=== PATIENT | male | born 1975 | race Two or more races ===

== ENCOUNTER → 2016-12-22 | Outpatient (CLI) | payer OTHER | END | disposition home or self-care (01) | LOC: RD 15:23 | DX: M54.9 Dorsalgia, unspecified (principal) | CPT/HCPCS: 72072 ==

== ENCOUNTER → 2017-01-09 | Outpatient (CLI) | payer OTHER ==
[2017-01-09 09:22] LABS: BASOPHIL % 0.6 % (0-2); PLATELET COUNT 278 x10^3mcL (130-400)
[2017-01-09 09:24] LABS: RED CELL DISTRIBUTION WIDTH 14.8 % (11.5-14.5)
[2017-01-09 09:37] LABS: ALBUMIN 3.7 g/dL (3.4-5.0); ALKALINE PHOSPHATASE 50 U/L (46-116); ALT/SGPT 38 U/L (16-63); AST/SGOT 22 U/L (15-37); CALCIUM 9.1 mg/dL (8.5-10.1); CARBON DIOXIDE 27.7 mmol/L (21-32); CHLORIDE SERUM 105 mmol/L (98-107); CHOLESTEROL 166 mg/dL (<200); CHOLESTEROL/HDL RATIO 4.5; CREATININE SERUM 1.2 mg/dL (0.7-1.3); GFR1 > 60 mL/min; GLUCOSE SERUM 96 mg/dL (74-106); HDL CHOLESTEROL 37 mg/dL (40-60); POTASSIUM SERUM 3.8 mmol/L (3.5-5.1); SODIUM SERUM 140 mmol/L (136-145); TOTAL PROTEIN, SERUM 8.1 g/dL (6.4-8.2); TRIGLYCERIDES 96 mg/dL (<150); URIC ACID 8.3 mg/dL (3.5-7.2)
== END | disposition home or self-care (01) ==
LOC: LB 08:58
PROVIDERS: Family Medicine
DX: Z00.00 Encounter for general adult medical examination without abnormal findings (principal); M10.00 Idiopathic gout, unspecified site

== ENCOUNTER → 2018-01-07 | Outpatient (CLI) | payer OTHER ==
[2018-01-07 08:02] LABS: ALBUMIN 3.7 g/dL (3.4-5.0); ALKALINE PHOSPHATASE 56 U/L (46-116); ALT/SGPT 57 U/L (16-63); AST/SGOT 30 U/L (15-37); BILIRUBIN TOTAL 0.84 mg/dL (0.20-1.00); CALCIUM 8.9 mg/dL (8.5-10.1); CARBON DIOXIDE 28.2 mmol/L (21-32); CHLORIDE SERUM 106 mmol/L (98-107); CHOLESTEROL 145 mg/dL (<200); GFR1 > 60 mL/min; GLUCOSE SERUM 96 mg/dL (74-106); POTASSIUM SERUM 4.1 mmol/L (3.5-5.1); SODIUM SERUM 143 mmol/L (136-145); TRIGLYCERIDES 63 mg/dL (<150); URIC ACID 7.7 mg/dL (3.5-7.2)
[2018-01-07 08:03] LABS: CHOLESTEROL/HDL RATIO 4.4; HDL CHOLESTEROL 33 mg/dL (40-60)
== END | disposition home or self-care (01) ==
LOC: LB 07:26
PROVIDERS: Family Medicine
DX: G47.62 Sleep related leg cramps (principal); Z87.39 Personal history of other diseases of the musculoskeletal system and connective tissue; Z13.220 Encounter for screening for lipoid disorders

== ENCOUNTER 2018-04-22 08:43 | Emergency (ER) | payer OTHER ==
[~2018-04-22] VITALS: Ht 177.8 cm; Wt 83.9 kg
[2018-04-22 08:44] VITALS: Ht 177.8 cm; Wt 83.9 kg
[2018-04-22 09:25] VITALS: BP 130/88
== END 2018-04-22 09:56 | disposition home or self-care (01) ==
LOC: ED 08:43
DX: R55 Syncope and collapse (principal)

== ENCOUNTER → 2018-04-22 | Outpatient (CLI) | payer OTHER ==
[2018-04-22 09:47] LABS: BASOPHIL % 1.1 % (0-2); PLATELET COUNT 133 x10^3mcL (130-400)
[2018-04-22 09:48] LABS: RED CELL DISTRIBUTION WIDTH 15.2 % (11.5-14.5)
[2018-04-22 10:02] LABS: IRON 44 ug/dL (65-170); TOTAL IRON BINDING CAPACITY 320 ug/dL (250-450)
[2018-04-22 10:18] LABS: ALBUMIN 3.7 g/dL (3.4-5.0); ALKALINE PHOSPHATASE 52 U/L (46-116); ALT/SGPT 37 U/L (16-63); AST/SGOT 25 U/L (15-37); BILIRUBIN TOTAL 0.7 mg/dL (0.20-1.00); CARBON DIOXIDE 27.3 mmol/L (21-32); CHLORIDE SERUM 103 mmol/L (98-107); CREATININE SERUM 1.1 mg/dL (0.7-1.3); GFR1 > 60 mL/min; GLUCOSE SERUM 96 mg/dL (74-106); MAGNESIUM 2.2 mg/dL (1.8-2.4); POTASSIUM SERUM 4.1 mmol/L (3.5-5.1); SODIUM SERUM 138 mmol/L (136-145)
[2018-04-22 10:26] LABS: TOTAL PROTEIN, SERUM 8.5 g/dL (6.4-8.2)
[2018-04-23 09:20] LABS: RHEUMATOID ARTHRITIS FACTOR <10.0 IU/mL (0.0-13.9)
[2018-04-24 10:54] LABS: VITAMIN D 25-HYDROXY 34.5 ng/mL (30.0-100.0)
== END | disposition home or self-care (01) ==
LOC: LB 07:24
DX: J30.2 Other seasonal allergic rhinitis (principal); R73.03 Prediabetes; R53.83 Other fatigue; R68.89 Other general symptoms and signs
CPT/HCPCS: 84153; 84439; 86376; 86431

== ENCOUNTER → 2018-05-11 | Outpatient (CLI) | payer OTHER ==
[2018-05-11 11:55] LABS: FREE T4 1.04 ng/dL (0.76-1.46)
== END | disposition home or self-care (01) ==
LOC: LB 10:17
DX: J30.2 Other seasonal allergic rhinitis (principal); R73.03 Prediabetes; R53.83 Other fatigue; R68.89 Other general symptoms and signs
CPT/HCPCS: 84439

== ENCOUNTER → 2018-12-04 | Outpatient (CLI) | payer OTHER | END | disposition home or self-care (01) | LOC: US 15:57 | PROC: BG44ZZZ Ultrasonography of Thyroid Gland (ICD-10-PCS; principal; 2018-12-04) | DX: E04.9 Nontoxic goiter, unspecified (principal) ==

== ENCOUNTER → 2019-02-10 | Outpatient (CLI) | payer OTHER ==
[2019-02-10 08:25] LABS: ALBUMIN 3.8 g/dL (3.4-5.0); ALKALINE PHOSPHATASE 47 U/L (46-116); ALT/SGPT 34 U/L (16-63); AST/SGOT 11 U/L (15-37); BILIRUBIN TOTAL 0.69 mg/dL (0.20-1.00); CALCIUM 9.5 mg/dL (8.5-10.1); CARBON DIOXIDE 27.4 mmol/L (21-32); CHLORIDE SERUM 106 mmol/L (98-107); CHOLESTEROL 188 mg/dL (<200); CHOLESTEROL/HDL RATIO 4.6; CREATININE SERUM 1.1 mg/dL (0.7-1.3); GFR1 > 60 mL/min; GLUCOSE SERUM 98 mg/dL (74-106); HDL CHOLESTEROL 41 mg/dL (40-60); MAGNESIUM 2.3 mg/dL (1.8-2.4); POTASSIUM SERUM 4.1 mmol/L (3.5-5.1); SODIUM SERUM 143 mmol/L (136-145); TOTAL PROTEIN, SERUM 8.1 g/dL (6.4-8.2); TRIGLYCERIDES 108 mg/dL (<150)
[2019-02-12 08:57] LABS: microscopic required? NO
[2019-02-12 09:16] LABS: urine erythrocyte NEGATIVE (NEGATIVE)
== END | disposition home or self-care (01) ==
LOC: LB 07:09
DX: Z00.00 Encounter for general adult medical examination without abnormal findings (principal); K21.9 Gastro-esophageal reflux disease without esophagitis; E83.42 Hypomagnesemia; E79.0 Hyperuricemia without signs of inflammatory arthritis and tophaceous disease; E53.8 Deficiency of other specified B group vitamins; E55.9 Vitamin D deficiency, unspecified; G25.81 Restless legs syndrome
CPT/HCPCS: 87338

== ENCOUNTER → 2019-03-02 | Outpatient (CLI) | payer OTHER ==
[2019-03-02 11:47] LABS: BASOPHIL % 0.7 % (0-2); PLATELET COUNT 280 x10^3mcL (130-400); RED CELL DISTRIBUTION WIDTH 14.5 % (11.5-14.5)
== END | disposition home or self-care (01) ==
LOC: LB 11:13
DX: E61.1 Iron deficiency (principal)

== ENCOUNTER → 2019-09-10 | Outpatient (CLI) | payer OTHER ==
[2019-09-10 17:10] LABS: IRON 35 ug/dL (65-170); TOTAL IRON BINDING CAPACITY 291 ug/dL (250-450)
[2019-09-10 17:11] LABS: BASOPHIL % 0.8 % (0-2); PLATELET COUNT 285 x10^3mcL (130-400); RED CELL DISTRIBUTION WIDTH 15.1 % (11.5-14.5)
== END | disposition home or self-care (01) ==
LOC: LB 16:28
DX: D64.9 Anemia, unspecified (principal)

== ENCOUNTER → 2019-09-17 | Outpatient (CLI) | payer OTHER ==
[2019-09-17 08:13] LABS: BASOPHIL % 1.1 % (0-2); PLATELET COUNT 289 x10^3mcL (130-400)
[2019-09-17 08:20] LABS: RED CELL DISTRIBUTION WIDTH 14.9 % (11.5-14.5)
[2019-09-17 08:26] LABS: ALBUMIN 3.7 g/dL (3.4-5.0); ALKALINE PHOSPHATASE 44 U/L (46-116); ALT/SGPT 47 U/L (16-63); AST/SGOT 17 U/L (15-37); BILIRUBIN TOTAL 0.5 mg/dL (0.20-1.00); C REACTIVE PROTEIN 0.8 mg/dL (<=0.9); CALCIUM 8.5 mg/dL (8.5-10.1); CARBON DIOXIDE 28.3 mmol/L (21-32); CHLORIDE SERUM 105 mmol/L (98-107); CREATININE SERUM 1.1 mg/dL (0.7-1.3); GFR1 > 60 mL/min; GLUCOSE SERUM 96 mg/dL (74-106); POTASSIUM SERUM 3.9 mmol/L (3.5-5.1); SODIUM SERUM 140 mmol/L (136-145); T4(THYROXINE) 7.9 ug/dL (4.7-13.3)
[2019-09-18 04:06] LABS: INSULIN 33.1 uIU/mL (2.6-24.9)
[2019-09-18 12:20] LABS: IRON 53 ug/dL (65-170); TOTAL IRON BINDING CAPACITY 299 ug/dL (250-450)
== END | disposition home or self-care (01) ==
LOC: LB 07:30
DX: J30.9 Allergic rhinitis, unspecified (principal); R89.9 Unspecified abnormal finding in specimens from other organs, systems and tissues; E04.9 Nontoxic goiter, unspecified; R79.0 Abnormal level of blood mineral
CPT/HCPCS: 84153; 84402; 84403; 86376

== ENCOUNTER 2019-09-28 07:03 | Day surgery (SDC) | payer OTHER ==
[~2019-09-28] VITALS: Ht 177.8 cm; Wt 88.5 kg
[2019-09-28 07:19] VITALS: BP 124/69
[2019-09-28 17:13] VITALS: BP 142/90
== END 2019-09-28 10:40 | disposition home or self-care (01) ==
LOC: GI 07:03 → OR 08:30 → GI 10:40
DX: D50.9 Iron deficiency anemia, unspecified (principal); K63.89 Other specified diseases of intestine; K21.9 Gastro-esophageal reflux disease without esophagitis; K64.8 Other hemorrhoids; G47.33 Obstructive sleep apnea (adult) (pediatric); J45.998 Other asthma; Z79.899 Other long term (current) drug therapy; Z98.890 Other specified postprocedural states
CPT/HCPCS: 43235; 45378; 87081; J1200; J1610; J2250; J2310; J3010; J3490

== ENCOUNTER → 2020-04-04 | Outpatient (CLI) | payer OTHER ==
[2020-04-04 08:26] LABS: BASOPHIL % 0.7 % (0-2); PLATELET COUNT 261 x10^3mcL (130-400)
[2020-04-04 08:39] LABS: RED CELL DISTRIBUTION WIDTH 15.3 % (11.5-14.5)
[2020-04-04 08:42] LABS: ALBUMIN 3.8 g/dL (3.4-5.0); ALKALINE PHOSPHATASE 53 U/L (46-116); ALT/SGPT 54 U/L (16-63); AST/SGOT 25 U/L (15-37); BILIRUBIN TOTAL 0.51 mg/dL (0.20-1.00); C REACTIVE PROTEIN 1.2 mg/dL (<=0.9); CALCIUM 8.7 mg/dL (8.5-10.1); CARBON DIOXIDE 26.7 mmol/L (21-32); CHLORIDE SERUM 105 mmol/L (98-107); CREATININE SERUM 1.3 mg/dL (0.7-1.3); GAMMA GLUTAMYL TRANSPEPTIDASE 34 U/L (5-85); GFR1 > 60 mL/min; GLUCOSE SERUM 99 mg/dL (74-106); POTASSIUM SERUM 4.1 mmol/L (3.5-5.1); SODIUM SERUM 140 mmol/L (136-145); TOTAL PROTEIN, SERUM 8.1 g/dL (6.4-8.2); URIC ACID 8.3 mg/dL (3.5-7.2)
[2020-04-04 09:00] LABS: FREE T4 1.19 ng/dL (0.76-1.46); MAGNESIUM 2.4 mg/dL (1.8-2.4)
[2020-04-07 09:05] LABS: C-PEPTIDE 8.7 ng/mL (1.1-4.4)
== END | disposition home or self-care (01) ==
LOC: LB 07:18
DX: J30.2 Other seasonal allergic rhinitis (principal); R73.03 Prediabetes; R53.83 Other fatigue; R68.89 Other general symptoms and signs
CPT/HCPCS: 82785; 84153; 84402; 84403; 84439; 86376

== ENCOUNTER → 2020-08-23 | Outpatient (CLI) | payer OTHER ==
[2020-08-23 08:16] LABS: BASOPHIL % 0.8 % (0.2-1.5); PLATELET COUNT 254 x10^3mcL (152-348)
[2020-08-23 08:22] LABS: RED CELL DISTRIBUTION WIDTH 14.8 % (12.1-16.2)
[2020-08-23 08:52] LABS: ERYTHROCYTE SED RATE 31 mm/hr (0-15)
[2020-08-23 09:01] LABS: ALBUMIN 3.9 g/dL (3.4-5.0); ALKALINE PHOSPHATASE 50 U/L (46-116); ALT/SGPT 46 U/L (16-63); AST/SGOT 18 U/L (15-37); BILIRUBIN TOTAL 0.39 mg/dL (0.20-1.00); CARBON DIOXIDE 27.2 mmol/L (21-32); CHLORIDE SERUM 105 mmol/L (98-107); CREATININE SERUM 1.2 mg/dL (0.7-1.3); GFR1 > 60 mL/min; GLUCOSE SERUM 98 mg/dL (74-106); POTASSIUM SERUM 3.7 mmol/L (3.5-5.1); SODIUM SERUM 140 mmol/L (136-145); TOTAL PROTEIN, SERUM 8.2 g/dL (6.4-8.2)
[2020-08-23 12:55] LABS: IRON 49 ug/dL (65-170); TOTAL IRON BINDING CAPACITY 301 ug/dL (250-450)
[2020-08-24 09:05] LABS: C-PEPTIDE 4.1 ng/mL (1.1-4.4); INSULIN 26.6 uIU/mL (2.6-24.9)
== END | disposition home or self-care (01) ==
LOC: LB 07:43
DX: J30.9 Allergic rhinitis, unspecified (principal); R73.03 Prediabetes; E34.9 Endocrine disorder, unspecified; E88.9 Metabolic disorder, unspecified
CPT/HCPCS: 84305